=== PATIENT | male | born 1985 | race Caucasian/White ===

== ENCOUNTER 2017-01-22 10:37 | Inpatient (IN) | payer BC, OTHER ==
[~2017-01-22] VITALS: Ht 175.3 cm; Wt 77.1 kg
--- NOTE | 2017-01-22 19:10 | NUR ---
Pre-Admission Note Pt is a 31 year old male, seen at intake, AAOx4, no SOB with anxiety noted at this time. Discussed with patients admission policies of the unit. Patient is coherent and able to respond to questions appropriately. Pt is ambulatory with steady gait. Vital Signs taken and as follows: BP 136/87, pulse 102, temp 98, resp 18, SpO2 97% room air. Pt verbalized understanding of instructions and teaching regarding disposal of narcotic and other controlled home medications, unit protocols such as taking of vital signs Q4H and handling and disposal of contraband. Will continue with admission upon patients arrival on the unit.
[2017-01-22] MEDS ORDERED: ONDANSETRON ODT 4 MG TAB.RAPDIS SL PRN (19:15)
[2017-01-22] MEDS ORDERED: LORAZEPAM 2 MG/1 ML VIAL IM PRN (19:15)
[2017-01-22] MEDS ORDERED: diphenhydrAMINE 50 MG CAPSULE PO PRN (19:15)
[2017-01-22] MEDS ORDERED: LOPERAMIDE HCL 2 MG CAPSULE PO PRN ×2 (19:15)
[2017-01-22] MEDS ORDERED: DICYCLOMINE HCL 20 MG TABLET PO PRN (19:15)
[2017-01-22] MEDS ORDERED: ACETAMINOPHEN 325 MG TABLET PO PRN (19:15)
[2017-01-22] MEDS ORDERED: MIRALAX 17 GM POWD.PACK PO PRN (19:15)
[2017-01-22] MEDS ORDERED: ONDANSETRON 4 MG/2 ML VIAL IM PRN (19:15)
[2017-01-22] MEDS ORDERED: IBUPROFEN 600 MG TABLET PO PRN (19:15)
[2017-01-22] MEDS ORDERED: CLONIDINE HCL 0.1 MG TABLET PO PRN (19:15)
[2017-01-22] MEDS ORDERED: MAG HYDROX/AL HYDROX/SIMETH 30 ML LIQUID UDC PO PRN (19:15)
[2017-01-22] MEDS ORDERED: THIAMINE HCL 200 MG/2 ML VIAL IM ONE (19:15)
[2017-01-22] MEDS ORDERED: LORAZEPAM 1 MG TABLET PO PRN ×2 (19:15)
--- NOTE | 2017-01-22 19:20 | NUR ---
Admission Note Pt is a 31 year old male admitted to [facility] 01/22/2017 for ETOH/Benzo dependence, arrived on the unit at 1920. NKA, denies history of seizures. Pt was able to provide urine drug screen. Upon admission, CIWA 6, BP 136/87, pulse 102, temp 98, resp 18, SpO2 97% room air., no reports of pain rated 0/10, weight 170lb and height 59. Pts primary care provider is Dr. Britt in [place], as reports per pt. Pt denies being hospitalized within the past 30 days. Pt reports he quit smoking 7 years ago. Pt is able to understand and respond to all questions pertaining to his hospitalization. Substance Abuse History is as follows: 1. Vodka - fifth of a bottle/daily, last intake of 4-5 shots on 01/22/2017, at this rate forx1 month. Pt reports he has been binge drinking on/off for the past 10 years. 2. Xanax - 2.5mg/daily, last intake of 2.5mg on 01/22/2017, at this rate for 1 week 3. Meth (smoke) 1g/daily, last intake of 1g on 01/22/2017, at this rate for 3 weeks 4. Cocaine (snort) 1g/daily, last intake of 1g on 01/22/2017, at this rate for 3 weeks Pt reports the trigger to use is due to feeling bored and irritated. Pts longest sober period was for 7 months in 2013. Treatment: 2006 - [facility] for 1-2 months and 2006 - [place], [place] for 60 days. When pt does not, he reports withdrawal symptoms of "I get tremors, my skin gets sweaty and sick to the stomach". PT has family history of substance abuse: "My maternal grandmother was alcoholic, my father was an opiate addict and my brother is currently sober from opiates". PMH: Depression, Anxiety and Body Dysmorphic Disorder. At time of assessment, pt is AAOx4, is anxious, skin flushed, reports feeing fatigue, respirations even/unlabored, denies SOB/chest pain, PERRLA. Skin is noted with moderate sweat/clammy, bowel sounds active x4, abdomen soft. Scattered circular skin scab wounds noted throughout body due skin picking, because of meth use, as stated by pt. Pt denies suicidal ideations. Educational information provided and left at bedside, pt oriented to room and encouraged to notify staff with any concerns. Safety measures in place, call light within reach, side rails up x2, bed locked and in low position. Will continue to monitor. Addendum: 01/23/17 at 0125 by CORIN ERWIN RN Substance Abuse History is as follows: 1. Vodka - 750ml/daily, last intake of 4-5 shots on 01/22/2017, at this rate forx1 month. Pt reports he has been binge drinking on/off for the past 10 years. 2. Xanax - 2.5mg/daily, last intake of 2.5mg on 01/22/2017, at this rate for 1 week 3. Meth (smoke) 1g/daily, last intake of 1g on 01/22/2017, at this rate for 3 weeks 4. Cocaine (snort) 1g/daily, last intake of 1g on 01/22/2017, at this rate for 3 weeks
[2017-01-22 20:00] VITALS: BP 136/87
[2017-01-22 20:11] LABS: *AMPHETAMINE, URINE POSITIVE (NEGATIVE); *BARBITURATE, URINE NEGATIVE (NEGATIVE); *CANNABINOID, URINE NEGATIVE (NEGATIVE); *COCCAINE, URINE POSITIVE (NEGATIVE); *OPIATE, URINE NEGATIVE (NEGATIVE); *PHENCYCLIDINE SCREEN,URINE NEGATIVE (NEGATIVE)
[2017-01-22 20:32] LABS: BASOPHILS # (AUTO) 0.1 K/uL (0.0-8.0); BASOPHILS % (AUTO) 0.5 % (0.0-2.0); EOSINOPHILS # (AUTO) 0.1 K/uL (0.0-0.7); EOSINOPHILS % (AUTO) 0.7 % (0.0-7.0); HEMATOCRIT 45.7 % (40-50); HEMOGLOBIN 15.2 G/DL (14.0-18.0); LYMPHOCYTES # (AUTO) 2.2 K/UL (0.8-4.8); LYMPHOCYTES % (AUTO) 16.1 % (20.5-51.5); MEAN CORPUSCULAR HEMOGLOBIN 30.2 UUG (27.0-31.0); MEAN CORPUSCULAR HGB CONC 33 g/dL (32.0-37.0); MEAN CORPUSCULAR VOLUME 90.5 FL (82.0-92.0); MONOCYTES # (AUTO) 1.1 K/UL (0.1-1.30); NEUTROPHILS # (AUTO) 10.3 K/UL (1.8-8.9); NEUTROPHILS % (AUTO) 74.7 % (38.5-71.5); PLATELET COUNT (AUTO) 291 K/UL (150-450); RED BLOOD CELL COUNT(AUTO) 5.05 MIL/UL (4.7-6.1); WHITE BLOOD COUNT (AUTO) 13.8 K/UL (4.0-11.2)
[2017-01-22 20:38] LABS: ALANINE AMINOTRANSFERASE 39 U/L (16-63); ALKALINE PHOSPHATASE 88 U/L (50-136); AMYLASE 37 U/L (25-115); ASPARTATE AMINOTRANSFERASE 24 U/L (15-37); BILIRUBIN,TOTAL 0.3 mg/dL (0.2-1.0); CARBON DIOXIDE 30 mmol/L (21-32); CHLORIDE 99 mmol/L (98-107); CREATININE 1.5 mg/dL (0.6-1.3); GLUCOSE 103 mg/dL (74-106); MAGNESIUM 2.1 mg/dL (1.8-2.4); POTASSIUM 3.7 mmol/L (3.5-5.1); TOTAL PROTEIN, SERUM 8.7 g/dL (6.4-8.2); UREA NITROGEN, BLOOD 19 mg/dL (7-18)
[2017-01-22 20:44] LABS: ETHANOL < 3 MG/DL (0-0)
[2017-01-22] MEDS ORDERED: LORAZEPAM 1 MG TABLET PO ONE (22:00)
[2017-01-22] MEDS ORDERED: SERT100T PO (23:53)
[2017-01-23] VITALS: BP 109/71
--- NOTE | 2017-01-23 | NUR ---
Vital Signs BP 109/71, pulse 78, resp 16, SpO2 98% room air, temp 98.4, no reports of pain CIWA deferred d/t pt sleeping, to assess while pt is awake as ordered. Safety measures in place. Will continue to monitor.
[2017-01-23 04:00] VITALS: BP 121/85
--- NOTE | 2017-01-23 07:00 | NUR ---
End of Shift Pt is a 31 year old male admitted for ETOH/Benzo dependence, placed on 4 day Ativan taper. At time of admission pt reported consuming Vodka - 750ml/daily , Xanax - 2.5mg/daily, Meth (smoke) 1g/daily and Cocaine (snort) 1g/daily. PMH: Anxiety, depression and body dysmorphic disorder. NKA, fall/seizure precautions (denies hx of seizure precautions ), regular diet and full code. CIWA 6, Ativan 2gm x1 administered as ordered. Pt refused scheduled Vital B1 inj, risks/benefits explained. No PRN medications administered during shift. Taper scheduled to be started today. Pt slept for 6 hours, intake of 750 ml PO, voids x1 and stool x0. Safety measures in place, call light within reach, side rails up x2, bed locked and in low position. Endorsed to day shift nurse.
--- NOTE | 2017-01-23 07:31 | NUR ---
BEGINNING OF SHIFT Patient endorsement report received from insurance administrative assistant nurse, all pertinent information discussed. Patient is a 31 year old male, with admitting Dx: ETOH/BZO dependence. with substance use history of methamphetamine, and cocaine. Patient admitted 01/22/2017, currently with ongoing taper of 4 day Ativan, and is scheduled to begin day 1 of taper, patient will continue under close observation. Patient received no PRNs during shift, but received a one time dose order of Ativan 2 mg Po as ordered for s/sx of withdrawal. Patient slept for 6 hours. Patient with last ciwa score of: 6. Patient received in bed with eyes closed, respirations are even and unlabored, responsive to verbal stimuli, educated patient regarding plan of care for the day and medication regimen . Patient Safety measures in place. call light kept with in reach, will continue to monitor closely. safety measures in place.
[2017-01-23 08:00] VITALS: BP 128/89
[2017-01-23] MEDS: LORAZEPAM 1 MG TABLET PO SCH ×3 (08:35→20:13)
[2017-01-23] MEDS: MULTIVITAMINS,THERAPEUTIC TABLET PO SCH (08:35)
[2017-01-23] MEDS: THIAMINE HCL 100 MG TABLET PO SCH (08:35)
[2017-01-23] MEDS: FOLIC ACID 1 MG TABLET PO SCH (08:35)
[2017-01-23] MEDS ORDERED: GABAPENTIN 300 MG CAPSULE PO SCH ×2 (09:00→21:00)
[2017-01-23] MEDS: NEOMY/BACITRAC/POLYMI OINT 28.35 GM TUBE TOP SCH ×2 (09:00→17:24)
[2017-01-23] MEDS ORDERED: LORAZEPAM 1 MG TABLET PO SCH (09:00)
[2017-01-23] MEDS ORDERED: TUBERCULIN,PURIF.PROT.DERIV. 5 TU/0.1 ML TEST ID ONE (09:00)
[2017-01-23] MEDS ORDERED: BACLOFEN 10 MG TABLET PO PRN (12:15)
[2017-01-23 12:59] VITALS: BP 124/87
[2017-01-23] MEDS: SERTRALINE HCL 100 MG TABLET PO SCH (14:37)
[2017-01-23 17:00] VITALS: BP 127/84
--- NOTE | 2017-01-23 18:57 | NUR ---
END OF SHIFT Patient alert and oriented x4, vital signs stable during shift. Patient compliant with therapeutic plan of care. Patient with admitting Dx: ETOH/BZO dependence. Patient currently with ongoing 5 day Ativan taper, well tolerated, no ASE noted, and is under close observation. 0900 assessment patient presented with: tremors that can be felt but not seen, barely sweating, and anxiety with ciwa score of: 9. 1300 assessment patient presented with: tremors that can be felt but not seen, and barely sweating with ciwa score of: 3; 1700 assessment patient presented with: tremors that can be felt but not seen, mild anxiety, and barely sweating with ciwa score of: 3. Detox medication effective at reducing withdrawal symptoms. Patient denies any SI/HI. Encouraged to attend group therapies/sessions to learn new coping skills to prevent relapse, patient preferred to stay in room, despite much encouragement, per patient he is very tired and would like to rest. Encouraged adequate PO fluid intake as tolerated. Safety measures in place. Call light kept with in reach. All needs met and rendered. Patient endorsed to systems program manager nurse, all pertinent information discussed.
[2017-01-23 20:00] VITALS: BP 113/79
--- NOTE | 2017-01-23 20:00 | NUR ---
Start of Shift Pt is a 31 year old male admitted for ETOH/Benzo dependence, placed on 4 day Ativan taper. Pt reported consuming Vodka 750ml/daily , Xanax - 2.5mg/daily, Meth (smoke) 1g/daily and Cocaine (snort) 1g/daily. PMH: Anxiety, depression and body dysmorphic disorder. NKA, fall/seizure precautions (denies hx of seizure precautions ), regular diet and full code. Upon assessment, pt presents with fatigue, reports feeling anxiety, mild body aches, skin flushed, respirations even/unlabored, denies SOB/chest pain, denies n/v/d. Safety measures in place, call light within reach, side rails up x2, bed locked and low position. Will continue to monitor.
[2017-01-23] MEDS: GABAPENTIN 300 MG CAPSULE PO SCH (20:13)
[2017-01-23 21:37] LABS: *BILIRUBIN,URIN NEGATIVE (NEGATIVE); *BLOOD, URINE NEGATIVE (NEGATIVE); *COLOR,URINE YELLOW (YELLOW); *KETONES,URINE NEGATIVE (NEGATIVE); *PROTEIN,URINE NEGATIVE (NEGATIVE); *UROBILINOGEN,URINE 0.2 E.U./dl (NORMAL); LEUKOCYTE ESTERASE ,URINE 1+ (NEGATIVE); NITRITE, URINE NEGATIVE (NEGATIVE); UGLUCOSE NEGATIVE (NEGATIVE)
[2017-01-23 21:54] LABS: *CLARITY,URINE HAZY (CLEAR)
[2017-01-23 21:55] LABS: CALCIUM OXALATE CRYSTALS,UR RARE /HPF (NONE SEEN); RBC,URINE 0-3 /HPF (0-3); SQUAMOUS EPITHELIAL CELL,UR FEW /HPF (NONE SEEN); URINE AMORPHOUS PHOSPHATES FEW /HPF
[2017-01-23 21:56] LABS: MUCUS,URINE MODERATE /LPF (0-FEW)
[2017-01-24] VITALS: BP 132/95
--- NOTE | 2017-01-24 | NUR ---
Vital Signs BP 132/95, pulse 88, resp 16, SpO2 96% room air, temp 98.2, no reports of pain CIWA deferred d/t pt sleeping, to assess while pt is awake as ordered. Safety measures in place. Will continue to monitor.
[2017-01-24 04:00] VITALS: BP 110/78
--- NOTE | 2017-01-24 04:00 | NUR ---
Vital Signs BP 110/78, pulse 82, resp 16, SpO2 98% room air, temp 98.1, no reports of pain CIWA deferred d/t pt sleeping, to assess while pt is awake as ordered. Safety measures in place. Will continue to monitor.
[2017-01-24 06:08] LABS: HEPATITIS B SURFACE AG Negative (Negative)
--- NOTE | 2017-01-24 07:00 | NUR ---
End of Shift Pt is a 31 year old male admitted for ETOH/Benzo dependence, placed on 4 day Ativan taper. Pt reported consuming Vodka 750ml/daily , Xanax - 2.5mg/daily, Meth (smoke) 1g/daily and Cocaine (snort) 1g/daily. PMH: Anxiety, depression and body dysmorphic disorder. NKA, fall/seizure precautions (denies hx of seizure precautions ), regular diet and full code. During shift, pt presented with fatigue, reports feeling anxiety, mild body aches, skin flushed - scheduled taper medications administered, effective in management of s/s of withdrawal, CIWA 3. No PRN medications administered. Pt slept for 9 hours, intake of 855ml PO, voids x2 and stool x0. Safety measures in place, call light within reach, side rails up x2, bed locked and low position. Endorsed to day shift nurse.
--- NOTE | 2017-01-24 07:05 | NUR ---
Start of shift note SBAR report rcv'd. Pt was admitted for ETOH and benzo dependence, and methamphetamine and cocaine abuse. pt has a PMHx of anxiety, depression, body dysmorphia d/o and a history of opiate dependence. Pt is on a 4 day ativan taper. Pt is ambulating around his room, pt has no complaints at this time. All needs addressed at this time. Will continue to monitor pt.
[2017-01-24 07:54] LABS: BASOPHILS % (AUTO) 0.5 % (0.0-2.0); EOSINOPHILS # (AUTO) 0.1 K/uL (0.0-0.7); EOSINOPHILS % (AUTO) 0.8 % (0.0-7.0); HEMATOCRIT 46.3 % (40-50); HEMOGLOBIN 15.3 G/DL (14.0-18.0); LYMPHOCYTES # (AUTO) 1.7 K/UL (0.8-4.8); LYMPHOCYTES % (AUTO) 18.1 % (20.5-51.5); MEAN CORPUSCULAR HEMOGLOBIN 30.3 UUG (27.0-31.0); MEAN CORPUSCULAR HGB CONC 33 g/dL (32.0-37.0); MEAN CORPUSCULAR VOLUME 91.5 FL (82.0-92.0); MONOCYTES # (AUTO) 0.6 K/UL (0.1-1.30); MONOCYTES % (AUTO) 6.5 % (0.0-11.0); NEUTROPHILS # (AUTO) 7.2 K/UL (1.8-8.9); NEUTROPHILS % (AUTO) 74.1 % (38.5-71.5); PLATELET COUNT (AUTO) 328 K/UL (150-450); RED BLOOD CELL COUNT(AUTO) 5.06 MIL/UL (4.7-6.1)
[2017-01-24 07:56] LABS: CREATININE 1.2 mg/dL (0.6-1.3); MAGNESIUM 2.1 mg/dL (1.8-2.4); POTASSIUM 4.4 mmol/L (3.5-5.1)
[2017-01-24 07:57] LABS: WHITE BLOOD COUNT (AUTO) 9.6 K/UL (4.0-11.2)
[2017-01-24 08:00] VITALS: BP 123/96
[2017-01-24] MEDS ORDERED: LORAZEPAM 1 MG TABLET PO SCH (09:00)
[2017-01-24] MEDS: THIAMINE HCL 100 MG TABLET PO SCH (09:15)
[2017-01-24] MEDS: GABAPENTIN 300 MG CAPSULE PO SCH ×3 (09:15→20:57)
[2017-01-24] MEDS: MULTIVITAMINS,THERAPEUTIC TABLET PO SCH (09:15)
[2017-01-24] MEDS: LORAZEPAM 1 MG TABLET PO SCH ×4 (09:15→20:57)
[2017-01-24] MEDS: FOLIC ACID 1 MG TABLET PO SCH (09:15)
[2017-01-24] MEDS: NEOMY/BACITRAC/POLYMI OINT 28.35 GM TUBE TOP SCH ×2 (09:16→17:32)
[2017-01-24] MEDS: SERTRALINE HCL 100 MG TABLET PO SCH (09:16)
[2017-01-24 12:30] VITALS: BP_SYST 121; BP_SYST 90; BP_DIAS 43; BP_DIAS 84
--- NOTE | 2017-01-24 15:38 | NUR ---
Therapist prompted client about group times. Client stated he is "too tired" today and he will try to go tomorrow.
[2017-01-24 16:00] VITALS: BP 124/86
--- NOTE | 2017-01-24 19:24 | NUR ---
End of shift note Pt was admitted for ETOH and benzo dependence, and methamphetamine and cocaine abuse. pt has a PMHx of anxiety, depression, body dysmorphia d/o and a history of opiate dependence. Pt is a full code, on a regular diet and denies any allergies. Pt is on a 4 day ativan taper and is tolerating well without any ASE. Pt slept most of the shift. Pt was easily arousable, VS are WNL. Pt ate 25% of breakfast, 50% of lunch, 100% of dinner, pt drank 1710 ml of fluids, had 5 voids and no BM's during the shift. Pt had a CIWA of 2 at 1600. Pt has no complaints at this time. Will endorse SBAR to oncoming shift. All needs addressed at this time.
[2017-01-24 20:00] VITALS: BP 124/84
--- NOTE | 2017-01-24 20:00 | NUR ---
Start of Shift Pt is a 31 year old male admitted for ETOH/Benzo dependence, placed on 4 day Ativan taper. Pt reported consuming Vodka 750ml/daily , Xanax - 2.5mg/daily, Meth (smoke) 1g/daily and Cocaine (snort) 1g/daily. PMH: Anxiety, depression and body dysmorphic disorder. NKA, fall/seizure precautions (denies hx of seizure precautions ), regular diet and full code. Upon assessment, pt presents with fatigue, reports feeling mild body aches, skin flushed, respirations even/unlabored, denies SOB/chest pain, denies n/v/d. Safety measures in place, call light within reach, side rails up x2, bed locked and low position. Will continue to monitor.
--- NOTE | 2017-01-25 | NUR ---
Pt refused to be woken up for 0000 Vital Signs CIWA deferred due to pt sleeping, to assess while pt is awake as ordered. Safety measures in place. Will continue to monitor.
--- NOTE | 2017-01-25 04:00 | NUR ---
Pt refused to be woken up for 0400 Vital Signs CIWA deferred due to pt sleeping, to assess while pt is awake as ordered. Safety measures in place. Will continue to monitor.
--- NOTE | 2017-01-25 07:00 | NUR ---
End of Shift Pt is a 31 year old male admitted for ETOH/Benzo dependence, placed on 4 day Ativan taper. Pt reported consuming Vodka 750ml/daily , Xanax - 2.5mg/daily, Meth (smoke) 1g/daily and Cocaine (snort) 1g/daily. PMH: Anxiety, depression and body dysmorphic disorder. NKA, fall/seizure precautions (denies hx of seizure precautions ), regular diet and full code. During shift, pt presented with fatigue, reports feeling mild body aches, skin flushed scheduled taper medications administered, effective in management of s/s of withdrawal as reported by pt, CIWA 2. No PRN medications administered, Pt slept for 1 hours, intake of 500 ml PO, voids x1 and stool x0. Safety measures in place, call light within reach, side rails up x2, bed locked and low position. Endorsed to day shift nurse
--- NOTE | 2017-01-25 07:05 | NUR ---
Start of shift note SBAR report rcv'd. Pt was admitted for ETOH, benzo, methamphetamine dependence. Pt has a PMHx anxiety, depression, body dysmorphia d/o and a hx of opiate dependence. Pt is on a regular diet, if a full code and denies any allergies. Pt is on day 3 of his 4 day ativan taper. Pt has no complaints at this time. Pt is resting comfortably in his room. All needs addressed at this time. Will continue to monitor pt.
[2017-01-25 08:00] VITALS: BP 131/96
[2017-01-25] MEDS: LORAZEPAM 1 MG TABLET PO SCH ×3 (08:35→20:06)
[2017-01-25] MEDS: MULTIVITAMINS,THERAPEUTIC TABLET PO SCH (08:35)
[2017-01-25] MEDS: SERTRALINE HCL 100 MG TABLET PO SCH (08:35)
[2017-01-25] MEDS: THIAMINE HCL 100 MG TABLET PO SCH (08:35)
[2017-01-25] MEDS: GABAPENTIN 300 MG CAPSULE PO SCH ×3 (08:35→20:06)
[2017-01-25] MEDS: NEOMY/BACITRAC/POLYMI OINT 28.35 GM TUBE TOP SCH ×2 (08:36→17:13)
[2017-01-25] MEDS: FOLIC ACID 1 MG TABLET PO SCH (08:36)
[2017-01-25] MEDS ORDERED: LORAZEPAM 1 MG TABLET PO SCH (09:00)
[2017-01-25 12:00] VITALS: BP 134/90
[2017-01-25 16:00] VITALS: BP 128/91
--- NOTE | 2017-01-25 19:07 | NUR ---
End of shift note- Pt was admitted for ETOH, benzo, methamphetamine dependence. Pt has a PMHx anxiety, depression, body dysmorphia d/o and a hx of opiate dependence. Pt is on a regular diet, if a full code and denies any allergies. Pt is on day 3 of his 4 day ativan taper and tolerating well. During the shift, pt stated that he felt very depressed today, more than usual. Dr Jamison was notified, and he made adjustments to the pt's medications. Pt did not require any PRN medication during the shift. Pt was encouraged to leave his room and participate in group by several staff members, without success. Pt drank 2047ml of fluids, had 4 voids and 1 BM, ate 100% of meals. At 1600 pt had a CIWA of 2. Pt has no complaints at this time. Will endorse SBAR to oncoming shift.
--- NOTE | 2017-01-25 19:15 | NUR ---
Start of shift: Received patient in bed, awake, alert and oriented x4. Patient admitted for benzo, ETOH, methamphetamine dependance. Past history of anxiety, depression, body dysmorphia and history of opiate dependence. Patient is calm and cooperative with care. Denies SI/HI/AVH. Speech is clear and able to make his needs known. Will continue to monitor behavior and medication effectiveness.
[2017-01-25 20:09] VITALS: BP 117/83
[2017-01-26] VITALS: BP 100/52
--- NOTE | 2017-01-26 | NUR ---
Patient asleep. Respiration even and unlabored. Refused CIWA assessment at this time. Addendum: 01/26/17 at 0117 by BLADE GEORGE RN Amended: Links added.
--- NOTE | 2017-01-26 04:12 | NUR ---
Patient asleep. Respiration even and unlabored. Refused IRMA at this time . Addendum: 01/26/17 at 0413 by BLADE GEORGE RN Amended: Links added.
--- NOTE | 2017-01-26 04:14 | NUR ---
Patient asleep. Respiration even and unlabored. 16 beats/min. Unable to assess vital sign at this time. Addendum: 01/26/17 at 0416 by BLADE GEORGE RN Amended: Links added.
--- NOTE | 2017-01-26 05:41 | NUR ---
End of shift notes: Patient slept 8 hours. Respiration even and unlabored. No signs of distress. Bathroom privileges. Thought process linear. Alert and oriented x4. Interacted well with staff and selective peers. No behavior issues. intake 450 and times 2 urine output BRP. Will continue to monitor.
--- NOTE | 2017-01-26 07:30 | NUR ---
Start of shift note; Received report from night nurse. Patient is a 31 year old male admitted on 01/22/17 for ETOH/Benzo dependence. Patient was placed on 4 day Ativan taper, no adverse reactions noted. Patient is AOX4. Reported history of anxiety, depression, body dysmorphia. Patient is on full code status, regular diet, NKA. Patient is on fall and seizure precaution. Bed in lowest position call light within reach. Will continue to monitor patient.
[2017-01-26 08:00] VITALS: BP 125/88
[2017-01-26] MEDS: MULTIVITAMINS,THERAPEUTIC TABLET PO SCH (08:27)
[2017-01-26] MEDS: LORAZEPAM 1 MG TABLET PO SCH ×2 (08:27→20:47)
[2017-01-26] MEDS: GABAPENTIN 300 MG CAPSULE PO SCH ×3 (08:27→20:48)
[2017-01-26] MEDS: FOLIC ACID 1 MG TABLET PO SCH (08:27)
[2017-01-26] MEDS: THIAMINE HCL 100 MG TABLET PO SCH (08:27)
[2017-01-26] MEDS: NEOMY/BACITRAC/POLYMI OINT 28.35 GM TUBE TOP SCH ×2 (08:27→16:11)
[2017-01-26] MEDS: SERTRALINE HCL 100 MG TABLET PO SCH (08:27)
[2017-01-26] MEDS ORDERED: LORAZEPAM 1 MG TABLET PO SCH (09:00)
[2017-01-26 12:00] VITALS: BP 125/88
[2017-01-26 16:00] VITALS: BP 132/92
--- NOTE | 2017-01-26 18:27 | NUR ---
End of shift of note; Patient is AOX4. Patient is a 31 year old male admitted on 01/22/17 for ETOH/Benzo dependence. Patient was placed on 4 day Ativan taper, no adverse reactions noted. Reported history of anxiety, depression, body dysmorphia. Patient is on full code status, regular diet, NKA. Patient is on fall and seizure precaution. Bed in lowest position call light within reach. Patient remained complaint with treatment plan and medication regime. Medications were effective in reducing withdrawal symptoms. Met all needs.
[2017-01-26 20:00] VITALS: BP 125/87
--- NOTE | 2017-01-26 20:00 | NUR ---
1999 Patient received awake, alert and sitting in bedside chair watching television. Patient responds to nurse's greeting and introduction, with a smile and "Hi". Patient is oriented to person, place, day, date, time and his personal situation. Patient states that he is feeling "okay" and he has been regularly attending and participating in [facility] groups and eating his Regular diet meal trays, though he is feeling a "little heartburn now", because," I ate too much tonight". Patient states further that he is taking various fluids ad blanca and other than his c/o present heartburn now, he has had no gastric issues. Patient denies any other discomforts. Vital signs are:97.7-88-16 125/87, O2 Sat 97%, CIWA 2 . Patient was admitted on 01/22/17 for Alcohol, Xanax, Methamphetamine and Cocaine withdrawal and he is currently on a 4-Day Ativan medication taper, which he is apparently tolerating well thus far. Patient is friendly, cooperative and verbally appropriate when interacting with nurses, though his overall mood/affect is flat and slightly withdrawn. Bed is locked and in lowest position, bed rails are up X 1 and call light within patient's easy reach.
--- NOTE | 2017-01-26 20:48 | NUR ---
PRN MEDICATION: Prn Maalox 30 ml p.o. given per c/o " heartburn".
--- NOTE | 2017-01-26 21:48 | NUR ---
REASSESSMENT PRN MEDICATION: Patient states that he is feeling much better now and not feeling heartburn presently.
--- NOTE | 2017-01-27 | NUR ---
Patient refused to be awakened for V/S to be done at this time.
--- NOTE | 2017-01-27 04:00 | NUR ---
Patient refused to be awakened for V/S to be done at this time.
--- NOTE | 2017-01-27 06:30 | NUR ---
0630 Patient slept a total of 5 hours and he had 2 voids and no stools. Total intake was 1,500 ml p.o. Prn medication given noted separately per floor protocol. V/SS afebrile, last CIWA was 2 at 1999. Patient is presently resting comfortably in stable condition with eyes closed and respirations even, unlabored at 12.
--- NOTE | 2017-01-27 07:50 | NUR ---
BEGINNING OF SHIFT Patient endorsement report received from production shift supervisor nurse, all pertinent information discussed. Patient is a 31 year old male with admitting Dx: etoh/BZO dependence, and substance use history of: methamphetamine and cocaine. Patient currently with ongoing 4 day Ativan taper as ordered, well tolerated, no ASE noted. Patient slept for 5 hours and received prn: Maalox as per production shift supervisor. Patient with last ciwa score of: 2. Patient received awake, alert and oriented x4, educated regarding plan of care for the day and medication regimen with good verbal understanding. Fall and seizure precautions observed. Safety measures in place. will continue to monitor closely.
[2017-01-27 08:51] VITALS: BP 132/90
[2017-01-27] MEDS: FOLIC ACID 1 MG TABLET PO SCH (08:52)
[2017-01-27] MEDS: SERTRALINE HCL 100 MG TABLET PO SCH (08:52)
[2017-01-27] MEDS: THIAMINE HCL 100 MG TABLET PO SCH (08:52)
[2017-01-27] MEDS: NEOMY/BACITRAC/POLYMI OINT 28.35 GM TUBE TOP SCH ×2 (08:53→17:29)
[2017-01-27] MEDS: GABAPENTIN 300 MG CAPSULE PO SCH ×3 (08:53→20:40)
[2017-01-27] MEDS: MULTIVITAMINS,THERAPEUTIC TABLET PO SCH (08:53)
[2017-01-27] MEDS ORDERED: LORAZEPAM 1 MG TABLET PO SCH ×2 (09:00)
[2017-01-27 13:00] VITALS: BP 126/92
[2017-01-27 17:00] VITALS: BP 126/93
--- NOTE | 2017-01-27 18:54 | NUR ---
END OF SHIFT Patient alert and oriented x4, vital signs stable during shift. Patient compliant with therapeutic plan of care. Patient with admitting Dx: ETOH/BZO dependence. Patient currently with ongoing 5 day Ativan taper, well tolerated, no ASE , last dose of Ativan was administered this morning. Patient is scheduled to be discharged tomorrow, noted self motivated towards sobriety. 0900 assessment patient presented with: tremors that can be felt and anxiety with ciwa score of: 4; 1300 assessment patient presented with tremors that can be felt and mild anxiety with ciwa score of: 2; 1700 assessment patient presented with: tremors that can be felt but not seen and mild anxiety with ciwa score of: 2. Detox medication effective at reducing withdrawal symptoms. Patient denies any SI/HI. Encouraged to attend group therapies/sessions to learn new coping skills to prevent relapse.Encouraged adequate PO fluid intake as tolerated. Safety measures in place. Call light kept with in reach. All needs met and rendered. Patient endorsed to assistant casino shift manager nurse, all pertinent information discussed.
[2017-01-27] MEDS ORDERED: BACL10TA PO (19:47)
[2017-01-27] MEDS ORDERED: SERT100T12 PO (19:47)
[2017-01-27] MEDS ORDERED: HYDR-3895 PO (19:47)
[2017-01-27] MEDS ORDERED: DIPH50CA37 PO (19:47)
[2017-01-27] MEDS ORDERED: GABA-534 PO (19:47)
[2017-01-27 20:00] VITALS: BP 135/91
--- NOTE | 2017-01-27 20:00 | NUR ---
1999 Patient received resting quietly with eyes closed. Aroused easily for nurse assess and V/S. Patient is oriented to person, place, day, date, time and his personal situation. Patient states that he has just returned from [facility] in recreation room. Patient states further that he is leaving tomorrow and he is anxious about that, 'in a good way'. Patient denies any pain or other discomforts and he voices no requests for anything. Patient states that he continues to eat his Regular diet meal trays and take various fluids ad blanca with no gastric issues. Vital signs are: 98.2-91-16 135/91, O2 Sat 96%, CIWA 1 . Patient was admitted on 01/22/17 for: Alcohol (Vodka), Xanax, Meth and Cocaine withdrawal and he has completed a 4-Day Ativan medication taper at this time. Patient is cooperative and verbally appropriate when interacting with nurse, though overall mood/affect is quiet and somewhat subdued when verbalizing. Bed is locked and in lowest position, bed rails are up X 1 and call light within patient's easy reach.
--- NOTE | 2017-01-28 | NUR ---
Patient refused to be awakened for V/S to be done at this time.
--- NOTE | 2017-01-28 04:00 | NUR ---
Patient refused to be awakened for V/S to be done at this time.
--- NOTE | 2017-01-28 06:30 | NUR ---
0630 Patient slept a total of 9 hours and he had 2 voids and no stools. Total intake was 855 ml p.o. No Prn medications given this shift. V/SS afebrile, last CIWA was 1 at 1999. Patient is presently resting comfortably in stable condition, with eyes closed and respirations even, unlabored at 12
--- NOTE | 2017-01-28 07:29 | NUR ---
BEGINNING OF SHIFT Patient endorsement report received from overnight caregiver nurse, all pertinent information discussed. Patient is a 31 year old male with admitting Dx: etoh/BZO dependence, and substance use history of: methamphetamine and cocaine. patient completed 4 day Ativan taper as ordered and is scheduled to be discharged this morning, noted self motivated towards sobriety. Patient slept for 9 hours and received no prns during overnight caregiver. Patient with last ciwa score of: 1. Patient received awake, alert and oriented x4, educated regarding plan of care for the day and medication regimen with good verbal understanding. Fall and seizure precautions observed. Safety measures in place. will continue to monitor closely.
[2017-01-28 08:25] VITALS: BP 125/88
[2017-01-28] MEDS: MULTIVITAMINS,THERAPEUTIC TABLET PO SCH (08:39)
[2017-01-28] MEDS: GABAPENTIN 300 MG CAPSULE PO SCH (08:39)
[2017-01-28] MEDS: SERTRALINE HCL 100 MG TABLET PO SCH (08:39)
[2017-01-28] MEDS: THIAMINE HCL 100 MG TABLET PO SCH (08:39)
[2017-01-28] MEDS: NEOMY/BACITRAC/POLYMI OINT 28.35 GM TUBE TOP SCH (08:39)
[2017-01-28] MEDS: FOLIC ACID 1 MG TABLET PO SCH (08:39)
--- NOTE | 2017-01-28 09:47 | NUR ---
DISCHARGE Patient off the unit at 0935, prior to discharge patient was educated and provided with teaching regarding all discharge instructions with good verbal understanding. Patient discharged to [facility], in stable condition, noted self motivated towards sobriety. Patient vital signs WNL. no s/sx of withdrawal, last ciwa score of: 0. Patients prescriptions and instructions were placed in personal duffel bag. Patient off the unit at 0935.
[2017-01-29 07:07] LABS: *GC NAA Negative (Negative); *TRIC.VAG. NAA Negative (Negative)
== END 2017-01-28 09:35 | disposition home or self-care (01) | DRG 895 ==
LOC: SRC 18:39
PROVIDERS: ADMIT Internal Medicine; ATTEND Internal Medicine
PROC: HZ2ZZZZ Detoxification Services for Substance Abuse Treatment (ICD-10-PCS; principal; 2017-01-22)
PROC: HZ31ZZZ Individual Counseling for Substance Abuse Treatment, Behavioral (ICD-10-PCS; 2017-01-24)
PROC: HZ41ZZZ Group Counseling for Substance Abuse Treatment, Behavioral (ICD-10-PCS; 2017-01-25)
DX: F10.230 Alcohol dependence with withdrawal, uncomplicated (principal); N17.9 Acute kidney failure, unspecified; N39.0 Urinary tract infection, site not specified; F15.23 Other stimulant dependence with withdrawal; F13.230 Sedative, hypnotic or anxiolytic dependence with withdrawal, uncomplicated; Y90.9 Presence of alcohol in blood, level not specified; F14.10 Cocaine abuse, uncomplicated; Z81.1 Family history of alcohol abuse and dependence; Z81.3 Family history of other psychoactive substance abuse and dependence; G47.00 Insomnia, unspecified; F41.9 Anxiety disorder, unspecified; F45.22 Body dysmorphic disorder; F32.9 Major depressive disorder, single episode, unspecified; Z79.899 Other long term (current) drug therapy; F11.21 Opioid dependence, in remission; Z72.51 High risk heterosexual behavior; D72.823 Leukemoid reaction; E86.9 Volume depletion, unspecified
CPT/HCPCS: 36415; 70030-TC; 80307; 80324; 80346; 80353; 83735; 85025; 86580; 86592; 86705; 86803; 87086; 87340; 87491; 87806; A4663; G0480